=== PATIENT | male | born 1990 | race Caucasian/White ===

== ENCOUNTER 2024-08-26 10:13 | Outpatient (CLI) | payer BC, SELFPAY ==
--- NOTE | ~2024-08-26 | XR_ITS ---
Right elbow Technique: AP, oblique, and lateral views were obtained. Clinical History: Pain Findings: No acute fracture or dislocation is seen. Osseous alignment is anatomic. Joint spaces are p reserved. There is no displacement of the fat pads, and soft tissues are unremarkable. Impression: Unremarkable radiographs. Reviewed, dictated and finalized at location . [employer]ENT[employer]IVE Impression: Unremarkable radiographs.
== END 2024-08-26 10:14 | disposition home or self-care (01) ==
PROVIDERS: PCP Chiropractor Rehabilitation; Visit Provider Chiropractor Rehabilitation
DX: M25.511 Pain in right shoulder (principal); M77.01 Medial epicondylitis, right elbow
CPT/HCPCS: 73080

== ENCOUNTER 2025-03-07 16:02 | Emergency (ER) | payer BC, SELFPAY ==
--- NOTE | ~2025-03-07 | XR_ITS ---
XR shoulder RT min 2V Ordering provider: Ying Jordan PA-C History: . dog bite . Comparison: None. FINDINGS: BONES: No acute fracture or dislocation. JOINT SPACES: The acromioclavicular joint is normal. The glenohumeral joint is normal. SOFT TISSUES: Normal. IMPRESSION: No acute osseous abnormality right shoulder. Reviewed, dictated and finalized at location A.
[2025-03-07 16:04] VITALS: BP 134/88; PULSE 114; RESP 16; TEMP 36.4; O2SAT 100
--- OUTSIDE RECORDS SUMMARY | 2025-03-07 16:04 | XMS_ITS | Data Portability ---
Author Organization [facility], [facility] Address [address] [place] [address] Assessment No assessment recorded. Plan of Treatment Reminders Order Date Submit Date Provider Last Modified By Organization Details Last Modified Time Details Appointments None record ed. Lab None record ed. Referral None record ed. Procedures None record ed. Surgeries None record ed. Imaging None record ed. Medication Orders None record ed. Patient TargetsNo targets recorded. Patient Instructions Encounter Date Encounter Id Patient Instructions Last Modified By Organization Details Last Modified Time 04/19/2015 [id number] Keep up healthy lifestyle. Good luck in medical school. [email or web address] Not available 04/19/2015 09:50:27 Return prn [email or web address] Not available 04/19 09:50:27 Reason for Referral None Reported. Results Created Date Observation Date Name Description Value Unit Range Abnormal Flag Note LastModifiedBy Organization Detail LastModifiedTime Result Notes None recorded. Procedures Surgical History Date Name Laterality Status Provider Name and Address Organization Details Recorded Time Other completed [facility] 04/19/2015 09:33:11 Imaging Results None recorded. Procedure Notes None recorded. Medical Equipment None Reported. Allergies No known drug allergies Medications Not known to be on any medication Vitals Date Recorded Respiratory rate Body weight Body height Heart rate Body mass index (BMI) Systolic And Diastolic Provider Name and Address Organization Details Last Updated DateTime 5 16 /min 44123.5 9446 g 165.1 cm 56 /min 26.3 kg/m2 132/82 mm[Hg] Tracycolumba Martinez [facility] 5 09:33:11 Social History Question Answer Notes LastModified by Organizat ion Details LastModified Time Tobacco Smoking Status Never Smoker Tracycolumba rico [facility] 04/19/2015 09:33:11 Marital Status Single Informatio n not available 04/19/2015 Sex: Male Functional Status Question Answer Note LastModified by Organizat ion Details LastModified Time What is your level of alcohol consumption? Occasional Information not available 04/19/2015 Mental Status None recorded. Family History Relationship Description Onset Age of this Age Resolved Age Notes LastModified by Organization Details LastModified Time Maternal Grandfather Diabetes mellitus [email or web address] Not available 2014 09:33:11 Medical History No medical history recorded. Past Encounters Encounter ID Performer Location Encounter Start Date Encounter Closed Date Diagnosis/Indication Diagnosis SNOMED-CT Code Diagnosis ICD10 Code Diagnosis Note 909 [facility] [address] [place] [address] 02/24/2014 00:00:00 [id number] DORA YIP PA-C [facility] [address] [place] [address] 04/19/2015 09:29:31 04/19/2015 09:54:39 Adult health examination [id number] Brisa Taylor [facility] [address] [place] [address] 02/03/2020 09:55:55 02/03/2020 10:26:18 Health Concerns Section Related Observation LastModified by Organization Detai ls LastModified Time None Recorded Concern Status LastModified by Organization Details LastModified Time None Recorded Advance Directives Directive None Recorded Payers Encounter Date Sequence Insurance Name Policy Number Policy Crar Covered Member ID Carr Member ID Guarantor Name 04/19/2015 [facility] ONLY[facility] Wilder Loza [id number] Wilder Loza
--- OUTSIDE RECORDS SUMMARY | 2025-03-07 16:04 | XMS_ITS | Data Portability ---
Author Organization [facility], [facility] Address [address] [place] [address] Assessment No assessment recorded. Plan of Treatment Reminders Order Date Submit Date Provider Last Modified By Organization Details Last Modified Time Details Appointments None record ed. Lab None record ed. Referral None record ed. Procedures None record ed. Surgeries None record ed. Imaging None record ed. Medication Orders None record ed. Patient TargetsNo targets recorded. Patient InstructionsNo instructions recorded. Reason for Referral None Reported. Medical Equipment None Reported. Allergies No known drug allergies Medications Not known to be on any medication Vitals Date Recorded Body height Body mass index (BMI) Body weight Body temperature Heart rate Respiratory rate Oxygen saturation Oxygen saturation in Arterial blood by Pulse oximetry Systolic And Diastolic Provider Name and Address Organization Details Last Updated DateTime 0 165.1 cm 27.5 kg/m2 50537.7 4 g 82 [degF] 56 /min 14 /min 98 % 98 % 122/76 mm[Hg] Valerie Hightower [facility] 0 12:29:04 Social History None recorded. Functional Status None recorded. Mental Status None recorded. Family History Nothing Reported. Medical History No medical history recorded. Past Encounters Encounter ID Performer Location Encounter Start Date Encounter Closed Date Diagnosis/Indication Diagnosis SNOMED-CT Code Diagnosis ICD10 Code Diagnosis Note [id number] autoEComm erce - [facility] [address] [place] [address] 02/24/2014 00:00:00 [id number] DORA YIP PA-C [facility] [address] [place] [address] 04/19/2015 09:29:31 04/19/2015 09:54:39 [id number] Brisa Taylor [facility] [address] [place] [address] [address] [place] [address] 02/03/2020 09:55:55 02/03/2020 10:26:18 Exposure to sexually transmissible disorder 324782195 Z20.2 I discussed with patient that he could be exposed from HPV, however unable to properly test for it. He had a normal exam today and has no obvious lesions or growth. Advised him to continue with protected sex as well as monitoring if new lesions appear.FU prn Health Concerns Section Related Observation LastModified by Organization Detai ls LastModified Time None Recorded Concern Status LastModified by Organization Details LastModified Time None Recorded Advance Directives Directive None Recorded Payers Encounter Date Sequence Insurance Name Policy Number Policy Carr Covered Member ID Carr Member ID Guarantor Name 02/03/2020 1 *SELF PAY* Coty Loza Notes Date Note Type Note Provider Name and Address Organization Details Recorded Time 02/03/2020 text/html He has concerns of STD exposure, more specifically HPV exposure. He said his gf just tested positive for HPV through her pap and wanted to get checked too. He denies any new lesion or growth or penile discharge. No pain with urination at all. He does say he has possible raised bumped around the scrotum diffusely, but no problems at all. Sexually active. Same partner, uses protection. No significant medical history. Currently a MS2 Brisa Taylor [address] [facility]. [address], [place], [address], [facility] [place] [facility] 02/03/2020 10:26:16
--- OUTSIDE RECORDS SUMMARY | 2025-03-07 16:04 | XMS_ITS | Data Portability ---
Author Organization [facility] [place], Main Office Address [address] [place] [id number] Care Team Providers Care Second Floor Operator Name Role Phone ELBERT TAYLOR Primary Care Provider Assessment Encounter Date Assessment Date Assessment LastModified by Organization Details LastModified Time 11/15/2024 11/15/2024 34 yo M for - WELL ADULT VISIT - VIT D DEFICIENCY - EX-SMOKER (Quited 15 yrs ago) - FH OF DM & PROSTATE CA D/w pt about his findings and further plan of care. Will do routine labs. Pt declined for cxr. Diet and exercise explained. Cont f/u with Derm at [facility] as per schedule. Cont f/u with Ophtho as per schedule. HM: Flu - 11/15/24. Tdap - 11/15/24. Gardasil - Pt to find out. F/u in 2-3 weeks. Annual labs in 12/08. [email or web address] Not available 11/15/2024 12:44:52 12/08/2024 12/08/2024 34 yo M for - HLD, new - VIT D DEFICIENCY - EX-SMOKER (Quited 15 yrs ago) - FH OF DM & PROSTATE CA Annual labs: 11/26/24. D/w pt about his findings, recent labs and further plan of care. Advised pt to start statin; but pt declined. Risks explained. Meds as directed. Risks Vs benefits of Aspirin 81mg po 2-3 times per week explained. Pt agreed. Diet and exercise explained. Cont f/u with Derm at [facility] as per schedule. Cont f/u with Ophtho as per schedule. HM: Flu - 11/15/24. Tdap - 11/15/24. Gardasil - 12/08/24. F/u in 3 months. Lipids before next visit. Gardasil # 2 after 02/06/25. Annual labs in 12/08. [email or web address] Not available 12/08/2024 09:30:14 01/26/2025 01/26/2025 D/w pt about his findings and further plan of care. Offered to do swab/cxr; but pt declined. All questions answered for the pt. Meds as directed. OTC symptomatic Rx and good liquid intake explained in detail. Advised pt to get checked in ED if any alarming symptoms/concern s. Pt verbalized understanding it. F/u as advised. Not available 01/26/2025 10:30:12 Plan of Treatment Reminders Order Date Submit Date Provider Last Modified By Organization Details Last Modified Time Details Appointments Follow Up 15 2024 02:30P Julianna Taylor MD Not available Not available Not available Lab lipid panel, serum 2024 025 [facility] (Lab), [address] [place], [address], 03/02/2025 02:59:29 vitamin D, 25-hydrox y, total, serum [address] (Lab), [address] [place], [address], 11/25/2024 16:19:12 PSA, serum or plasma [address] (Lab), [address] [place], [address], 11/25/2024 16:19:12 CMP, serum or plasma [address] (Lab), [address] [place], [address], 11/25/2024 16:19:11 CBC w/ auto diff [address] (Lab), [address] [place], [address], 11/25/2024 16:19:11 lipid panel, blood [address] (Lab), [address] [place], [address], 11/25/2024 16:19:11 TSH, serum, reflex free T4 [address] (Lab), [address] [place], [address], 11/25/2024 16:19:12 urinalysi s complete, reflex culture [address] (Lab), [address] [place], [address], 11/25/2024 16:19:12 glycohemo globin, total, blood [address] (Lab), [address] [place], [address], 11/25/2024 16:19:12 Referral None recorded. Procedures None recorded. Surgeries None recorded. Imaging None recorded. Medication Orders azithromy alfredo 250 mg tablet [address]/Pharmacy #3259, [address] [place], [address], 01/26/2025 14:18:57 Medrol (Obinna) 4 mg tablets in a dose pack [address]/Pharmacy #3259, [address] [place], [address], 01/26/2025 14:18:57 albuterol sulfate HFA 90 mcg/actua tion aerosol inhaler [address]/Pharmacy #3259, [address] [place], [address], 01/26/2025 14:18:57 Solu-Medr ol (PF) 125 mg/2 mL solution for injection 2024 025 [place] [address] Not available 01/26/2025 14:18:57 benzonata te 200 mg capsule [address]/Pharmacy #3259, [address] [place], [address], 01/26/2025 14:18:57 ergocalci ferol (vitamin D2) 1,250 mcg (50,000 unit) capsule 2024 025 [facility]Ph[facility]acy #3259, [address] [place], [address], 12/08/2024 09:16:19 Patient TargetsNo targets recorded. Patient Instructions Encounter Date Encounter Id Patient Instructions Last Modified By Organization Details Last Modified Time 12/08/2024 [id number] high cholesterol : care instructions [email or web address] Not available 12/08/2024 09:16:17 Reason for Referral None Reported. Results Created Date Observation Date Name Description Value Unit Range Abnormal Flag Note LastModifiedBy Organization Detail LastModifiedTime 11/26/1911/27/2024 LIPID PANEL , STAND VIRGIL cholesterol, total 230 mg/dL <200 high Not Available [facility] [address] [address] [place], [address], 11/27/2024 05:49:18 11/26/1911/27/2024 LIPID PANEL , STAND VIRGIL HDL cholesterol 46 mg/dL > or = 40 normal Not Available [facility] [address] [address] [place], [address], 11/27/2024 05:49:18 11/26/1911/27/2024 LIPID PANEL , STAND VIRGIL triglyceride s 135 mg/dL <150 normal Not Available [employer] [address] [address] [place], [address], 11/27/2024 05:49:18 11/26/19 25 11/27/2024 LIPID PANEL , STAND VIRGIL LDL-choleste rol 158 mg/dL _(tatiana c) high Refer ence range : <100 Keith able range <100 mg/dL for prima ry preve ntion ; <70 mg/dL for patie nts with CHD or diabe tic patie nts with > or = 2 CHD risk facto rs. LDL-C is now calcu lated using the Harini n-Hop kins calcu evin n, which is a valid ated novel metho d provi ding shaheen r accur acy than the Fried rob equat ion in the estim ation of LDL-C . Harini n SS et al. NERY. 2013; 310(1 9): 2061- 2068 (http ://ed ucati on.[employer]. com/f aq/FA Q164) Not Available [address] [address] [place], [address], 11/27/2024 05:49:18 11/26/19 25 11/27/2024 LIPID PANEL , STAND VIRGIL chol/HDLC ratio 5.0 (calc ) <5.0 high Not Available [address] [address] [place], [address], 11/27/2024 05:49:18 11/26/1911/27/2024 LIPID PANEL , STAND VIRGIL non HDL cholesterol 184 mg/dL _(tatiana c) <130 high For patie nts with diabe jessy plus 1 major ASCVD risk facto r, treat ing to a non-H DL-C goal of <100 mg/dL (LDL- C of <70 mg/dL ) is consi dered a thera peuti c optio n. Not Available [address] [address] [place], [address], 11/27/2024 05:49:18 11/26/1911/27/2024 COMPR EHENS EARLINE METAB OLIC PANEL glucose 88 mg/dL 65-99 normal Fasti ng refer ence inter elysia Not Available [facility] [address] [address] [place], [address], 11/27/2024 05:49:19 11/26/1911/27/2024 COMPR EHENS EARLINE METAB OLIC PANEL urea nitrogen (BUN) 18 mg/dL 7-25 normal Not Available [address] [address] [place], [address], 11/27/2024 05:49:19 11/26/1911/27/2024 COMPR EHENS EARLINE METAB OLIC PANEL creatinine 0.81 mg/dL 0.60-1 .26 normal Not Available [address], [address], 11/27/2024 05:49:19 11/26/1911/27/2024 COMPR EHENS EARLINE METAB OLIC PANEL eGFR 119 mL/mi n/1.7 3m2 > or = 60 normal Not Available [address] [address] [place], [address], 11/27/2024 05:49:19 11/26/1911/27/2024 COMPR EHENS EARLINE METAB OLIC PANEL BUN/creatini ne ratio SEE NOTE: (calc ) 6-22 Not Repor chasidy: BUN and Creat inine are withi n refer ence range . Not Available [address], [address], 11/27/2024 05:49:19 11/26/1911/27/2024 COMPR EHENS EARLINE METAB OLIC PANEL sodium 136 mmol/ L 135-14 6 normal Not Available [facility] [address] [address] [place], [address], 11/27/2024 05:49:19 11/26/1911/27/2024 COMPR EHENS EARLINE METAB OLIC PANEL potassium 4.5 mmol/ L 3.5-5. 3 normal Not Available [facility] [address] [address] [place], [address], 11/27/2024 05:49:19 11/26/19 25 11/27/2024 COMPR EHENS EARLINE METAB OLIC PANEL chloride 99 mmol/ L 98-110 normal Not Available [address], [address], 11/27/2024 05:49:19 11/26/19 25 11/27/2024 COMPR EHENS EARLINE METAB OLIC PANEL carbon dioxide 30 mmol/ L 20-32 normal Not Available [address], [address], 11/27/2024 05:49:19 11/26/1911/27/2024 COMPR EHENS EARLINE METAB OLIC PANEL calcium 9.4 mg/dL 8.6-10 .3 normal Not Available [address], [address], 11/27/2024 05:49:19 11/26/19 25 11/27/2024 COMPR EHENS EARLINE METAB OLIC PANEL protein, total 7.1 g/dL 6.1-8. 1 normal Not Available [address], [address], 11/27/2024 05:49:19 11/26/19 25 11/27/2024 COMPR EHENS EARLINE METAB OLIC PANEL albumin 4.8 g/dL 3.6-5. 1 normal Not Available [address], [address], 11/27/2024 05:49:19 11/26/1911/27/2024 COMPR EHENS EARLINE METAB OLIC PANEL globulin 2.3 g/dL_ (calc ) 1.9-3. 7 normal Not Available [address], [address], 11/27/2024 05:49:19 11/26/19 25 11/27/2024 COMPR EHENS EARLINE METAB OLIC PANEL albumin/glob ulin ratio 2.1 (calc ) 1.0-2. 5 normal Not Available [address], [address], 11/27/2024 05:49:19 11/26/1911/27/2024 COMPR EHENS EARLINE METAB OLIC PANEL bilirubin, total 0.8 mg/dL 0.2-1. 2 normal Not Available [address], [address], 11/27/2024 05:49:19 11/26/1911/27/2024 COMPR EHENS EARLINE METAB OLIC PANEL alkaline phosphatase 55 U/L 36-130 normal Not Available [facility] [employer] [address], [address], 11/27/2024 05:49:19 11/26/1911/27/2024 COMPR EHENS EARLINE METAB OLIC PANEL AST 18 U/L 10-40 normal Not Available [address], [address], 11/27/2024 05:49:19 11/26/1911/27/2024 COMPR EHENS EARLINE METAB OLIC PANEL ALT 25 U/L 9-46 normal Not Available [address], [address], 11/27/2024 05:49:19 11/26/1911/27/2024 CBC (INCL UDES DIFF/ PLT) white blood cell count 5.9 thous and/u L 3.8-10 .8 normal Not Available [address], [address], 11/27/2024 05:49:19 11/26/1911/27/2024 CBC (INCL UDES DIFF/ PLT) red blood cell count 5.48 monica on/uL 4.20-5 .80 normal Not Available [address], [address], 11/27/2024 05:49:19 11/26/1911/27/2024 CBC (INCL UDES DIFF/ PLT) hemoglobin 16.4 g/dL 13.2-1 7.1 normal Not Available [address], [address], 11/27/2024 05:49:19 11/26/1911/27/2024 CBC (INCL UDES DIFF/ PLT) hematocrit 48.3 % 38.5-5 0.0 normal Not Available [facility] [address], [address], 11/27/2024 05:49:19 11/26/1911/27/2024 CBC (INCL UDES DIFF/ PLT) MCV 88.1 fL 80.0-1 00.0 normal Not Available [address], [address], 11/27/2024 05:49:19 11/26/1911/27/2024 CBC (INCL UDES DIFF/ PLT) MCH 29.9 pg 27.0-3 3.0 normal Not Available [address], [address], 11/27/2024 05:49:19 11/26/1911/27/2024 CBC (INCL UDES DIFF/ PLT) MCHC 34.0 g/dL 32.0-3 6.0 normal For adult s, a sligh t decre ase in the calcu lated MCHC value (in the range of 30 to 32 g/dL) is most likel y not clini sivan jeani mark t; katelyn er, it shoul d be inter prete d with cauti [place] [facility] [place] with other red cell roger eters and the patie nt's clini tatiana condi tion. Not Available [address], [address], 11/27/2024 05:49:19 11/26/1911/27/2024 CBC (INCL UDES DIFF/ PLT) RDW 12.4 % 11.0-1 5.0 normal Not Available [address], [address], 11/27/2024 05:49:19 11/26/19 25 11/27/2024 CBC (INCL UDES DIFF/ PLT) platelet count 219 thous and/u L 140-40 0 normal Not Available [address], [address], 11/27/2024 05:49:19 11/26/1911/27/2024 CBC (INCL UDES DIFF/ PLT) MPV 10.0 fL 7.5-12 .5 normal Not Available [address], [address], 11/27/2024 05:49:19 11/26/1911/27/2024 CBC (INCL UDES DIFF/ PLT) absolute neutrophils 2720 cells /uL 1500-7 800 normal Not Available [address], [address], 11/27/2024 05:49:19 11/26/1911/27/2024 CBC (INCL UDES DIFF/ PLT) absolute lymphocytes 2390 cells /uL 850-39 00 normal Not Available [address], [address], 11/27/2024 05:49:19 11/26/1911/27/2024 CBC (INCL UDES DIFF/ PLT) absolute monocytes 496 cells /uL 200-95 0 normal Not Available [address], [address], 11/27/2024 05:49:19 11/26/19 25 11/27/2024 CBC (INCL UDES DIFF/ PLT) absolute eosinophils 248 cells /uL 15-500 normal Not Available [facility] [address], [address], 11/27/2024 05:49:19 11/26/1911/27/2024 CBC (INCL UDES DIFF/ PLT) absolute basophils 47 cells /uL 0-200 normal Not Available [address], [address], 11/27/2024 05:49:19 11/26/1911/27/2024 CBC (INCL UDES DIFF/ PLT) neutrophils 46.1 % normal Not Available [facility] [address], [address], 11/27/2024 05:49:19 11/26/1911/27/2024 CBC (INCL UDES DIFF/ PLT) lymphocytes 40.5 % normal Not Available [address], [address], 11/27/2024 05:49:19 11/26/1911/27/2024 CBC (INCL UDES DIFF/ PLT) monocytes 8.4 % normal Not Available [address], [address], 11/27/2024 05:49:19 11/26/1911/27/2024 CBC (INCL UDES DIFF/ PLT) eosinophils 4.2 % normal Not Available [address], [address], 11/27/2024 05:49:19 11/26/1911/27/2024 CBC (INCL UDES DIFF/ PLT) basophils 0.8 % normal Not Available [address], [address], 11/27/2024 05:49:19 11/26/1911/27/2024 URINA LYSIS , COMPL ETE W/REF TERRI TO CULTU RE color YELLOW yellow normal Not Available [address], [address], 11/27/2024 05:49:20 11/26/19 25 11/27/2024 URINA LYSIS , COMPL ETE W/REF TERRI TO CULTU RE appearance CLEAR clear normal Not Available [address], [address], 11/27/2024 05:49:20 11/26/19 25 11/27/2024 URINA LYSIS , COMPL ETE W/REF TERRI TO CULTU RE specific gravity 1.016 1.001- 1.035 normal Not Available [address], [address], 11/27/2024 05:49:20 11/26/19 25 11/27/2024 URINA LYSIS , COMPL ETE W/REF TERRI TO CULTU RE pH 6.5 5.0-8. 0 normal Not Available [address], [address], 11/27/2024 05:49:20 11/26/19 25 11/27/2024 URINA LYSIS , COMPL ETE W/REF TERRI TO CULTU RE glucose NEGATI VE negati ve normal Not Available [address], [address], 11/27/2024 05:49:20 11/26/19 25 11/27/2024 URINA LYSIS , COMPL ETE W/REF TERRI TO CULTU RE bilirubin NEGATI VE negati ve normal Not Available [address], [address], 11/27/2024 05:49:20 11/26/19 25 11/27/2024 URINA LYSIS , COMPL ETE W/REF TERRI TO CULTU RE ketones NEGATI VE negati ve normal Not Available [address], [address], 11/27/2024 05:49:20 11/26/19 25 11/27/2024 URINA LYSIS , COMPL ETE W/REF TERRI TO CULTU RE occult blood NEGATI VE negati ve normal Not Available [address], [address], 11/27/2024 05:49:20 11/26/19 25 11/27/2024 URINA LYSIS , COMPL ETE W/REF TERRI TO CULTU RE protein NEGATI VE negati ve normal Not Available [address], [address], 11/27/2024 05:49:20 11/26/1911/27/2024 URINA LYSIS , COMPL ETE W/REF TERRI TO CULTU RE nitrite NEGATI VE negati ve normal Not Available [address], [address], 11/27/2024 05:49:20 11/26/19 25 11/27/2024 URINA LYSIS , COMPL ETE W/REF TERRI TO CULTU RE leukocyte esterase NEGATI VE negati ve normal Not Available [address], [address], 11/27/2024 05:49:20 11/26/19 25 11/27/2024 URINA LYSIS , COMPL ETE W/REF TERRI TO CULTU RE WBC NONE SEEN /hpf < or = 5 normal Not Available [address], [address], 11/27/2024 05:49:20 11/26/19 25 11/27/2024 URINA LYSIS , COMPL ETE W/REF TERRI TO CULTU RE RBC NONE SEEN /hpf < or = 2 normal Not Available [address], [address], 11/27/2024 05:49:20 11/26/19 25 11/27/2024 URINA LYSIS , COMPL ETE W/REF TERRI TO CULTU RE squamous epithelial cells NONE SEEN /hpf < or = 5 normal Not Available [facility] [address] [address] [address], [place], [address], 11/27/2024 05:49:20 11/26/19 25 11/27/2024 URINA LYSIS , COMPL ETE W/REF TERRI TO CULTU RE bacteria NONE SEEN /hpf none seen normal Not Available [facility] [address], [address], 11/27/2024 05:49:20 11/26/19 25 11/27/2024 URINA LYSIS , COMPL ETE W/REF TERRI TO CULTU RE hyaline cast NONE SEEN /lpf none seen normal Not Available [facility] [address], [address], 11/27/2024 05:49:20 11/26/19 25 11/27/2024 URINA LYSIS , COMPL ETE W/REF TERRI TO CULTU RE note This urine was preet zed for the prese nce of WBC, RBC, bacte myah, casts , and other forme d eleme nts. Only those eleme nts seen were repor chasidy. Not Available [address], [address], 11/27/2024 05:49:20 11/26/19 25 11/27/2024 REFLE XIVE URINE CULTU RE reflexive urine culture NO CULTU RE INDIC ATED Not Available [address], [address], 11/27/2024 05:49:20 11/26/19 25 11/27/2024 PSA, TOTAL PSA, total 0.22 NG/mL < or = 4.00 normal The total PSA value from this assay syste m is stand ardiz ed again st the WHO stand virgil. The test resul t will be appro ximat steffi 20% lower when alex red to the equim olar- stand ardiz ed total PSA (Dickinson man Coult er). Alex rison of seria l PSA resul ts shoul d be inter prete d with this fact in mind. This test was perfo rmed using the Sieme ns chemi lumin escen t metho d. Value s obtai laury from diffe rent assay metho ds canno t be used inter golden eably . PSA level s, regar dless of value , shoul d not be inter prete d as absol brendan evide nce of the prese nce or absen ce of disea se. Not Available [facility] [address] [address] [place], [address], 11/27/2024 05:49:21 11/26/19 25 11/27/2024 TSH TSH 1.59 mIU/L 0.40-4 .50 normal Not Available [facility] [address] [address] [place], [address], 11/27/2024 05:49:21 11/26/19 25 11/27/2024 VITAM IN D,25- OH,TO QUINTIN,I A vitamin D,25-oh,tota l,ia 17 NG/mL 30-100 low Vitam in D Statu s 25-OH Vitam in D: Defic iency : <20 ng/mL Insuf ficie ncy: 20 - 29 ng/mL Optim al: > or = 30 ng/mL For 25-OH Vitam in D testi ng on patie nts on D2-matos pplem entat ion and patie nts for whom quant itati on of D2 and D3 fract ions is requi red, the [facility] Assur eD(TM ) 25-OH VIT D, (D2,D 3), LC/MS /MS is recom giulia d: order code 65133 (mandeep ents >2yrs ). See Note 1 Note 1 For addit ional infor astrid mason e refer to http: //brittanie Herbert stDia gnost ics.c om/fa q/FAQ 199 (This link is being provi ded for infor nikolay nickerson/ ibrahima soto purpo ses only. ) Not Available [facility] [address] [address] [place], [address], 11/27/2024 05:49:21 11/26/1911/27/2024 HEMOG LOBIN A1C hemoglobin A1C 5.3 %_of_ total _HGB <5.7 normal For the purpo se of tanya talley for the prese nce of diabe jessy: <5.7% Consi stent with the absen ce of diabe jessy 5.7-6 .4% Consi stent with incre ased risk for diabe jessy (pred iabet es) > or =6.5% Consi stent with diabe jessy This assay resul t is consi stent with a decre ased risk of diabe jessy. Curre ntly, no conse nsus exist s kathia castillo use of hemog lobin A1c for diagn osis of diabe jessy in child anaya. Accor ding to Ameri can Diabe jessy Assoc iatio n (ADA) guide lines , hemog lobin A1c <7.0% repre sents optim al contr ol in non-p regna nt diabe tic patie nts. Diffe rent metri cs may apply to speci fic patie nt popul ation s. Stand ards of Medic al Care in Diabe jessy(A DA). Not Available [facility] [address] [address] [place], [address], 11/27/2024 05:49:22 03/01/20 25 03/02/2025 LIPID PANEL , STAND VIRGIL cholesterol, total 208 mg/dL <200 high Not Available [facility] [address] [address] [place], [address], 03/02/2025 02:59:29 03/01/20 25 03/02/2025 LIPID PANEL , STAND VIRGIL HDL cholesterol 49 mg/dL > or = 40 normal Not Available [facility] [address] [address] [place], [address], 03/02/2025 02:59:29 03/01/20 25 03/02/2025 LIPID PANEL , STAND VIRGIL triglyceride s 97 mg/dL <150 normal Not Available [facility] [address] [address] [place], [address], 03/02/2025 02:59:29 03/01/20 25 03/02/2025 LIPID PANEL , STAND VIRGIL LDL-choleste rol 139 mg/dL _(tatiana c) high Refer ence range : <100 Keith able range <100 mg/dL for prima ry preve ntion ; <70 mg/dL for patie nts with CHD or diabe tic patie nts with > or = 2 CHD risk facto rs. LDL-C is now calcu lated using the Harini n-Hop kins calcu latio n, which is a valid ated novel metho d provi ding shaheen r accur acy than the Fried rob equat ion in the estim ation of LDL-C . Harini melara SS et al. NERY. 2013; 310(1 9): 2061- 2068 (http ://ed ucati on.[employer]. com/f aq/FA Q164) Not Available [facility] [address] [place], [address], 03/02/2025 02:59:29 03/01/20 25 03/02/2025 LIPID PANEL , STAND VIRGIL chol/HDLC ratio 4.2 (calc ) <5.0 normal Not Available [facility] [address] [address] , [place], [address], 03/02/2025 02:59:29 03/01/20 25 03/02/2025 LIPID PANEL , STAND VIRGIL non HDL cholesterol 159 mg/dL _(tatiana c) <130 high For patie nts with diabe jessy plus 1 major ASCVD risk facto r, treat ing to a non-H DL-C goal of <100 mg/dL (LDL- C of <70 mg/dL ) is juanpablo robertsono n. Not Available [facility] [address] [address] , [place], [address], 03/02/2025 02:59:29 12/03/19 25 12/03/2024 other (proc ) No observ ation record ed. Not Available 2024 09:15:08 Result Notes None recorded. Problems Name Problem SNOMED Code Status Onset Date Resolution Date Notes Provider Name and Address Organization Details Recorded Time Vitamin D deficiency 86363814 Active 2024 Elbert Taylor MD [address] [facility], [address], [address], [employer] 5 12:28:36 Ex-cigarette smoker 604098637 Active 2024 Elbert Taylor MD [address], [address], [employer] 5 12:30:30 Family history of diabetes mellitus 403091716 Active 2024 Elbert Taylor MD [address], [address], [employer] 5 12:37:05 Family history of malignant neoplasm of prostate 190003513 Active 2024 Elbert Taylor MD [address], [address], [employer] 5 12:37:06 Hyperlipidemia 36661539 Active 2024 Elbert Taylor MD [address], [address], [employer] 5 09:03:49 Cough 56279165 Active 2024 Miriam rico [employer] 14:18:57 Bronchitis 95581558 Active 2024 Miriam rico, [facility] [employer] 5 14:18:57 Expiratory wheezing 6834162 Active 2024 Miriam rico [facility] [employer] 14:18:57 Fever with chills 017043777 Active 2024 Miriam rico, [facility] [employer] 14:18:57 Problem Notes None recorded. Procedures Surgical History Date Name Laterality Status Provider Name and Address Organization Details Recorded Time 10/13/19 16 Appendectomy completed Alva Handy RN [facility] [facility] 11/15/2024 12:18:24 10/13/19 11 extraction of wisdom tooth completed Alva Handy RN [facility] [employer] [facility] 11/15/2024 12:18:46 10/13/18 90 lumbar puncture completed Alva Handy RN [facility] [employer] [facility] 11/15/2024 12:19:27 Imaging Results None recorded. Procedure Notes None recorded. Medical Equipment None Reported. Allergies No known drug allergies Medications Name Sig Start Date Stop Date Status Note LastModified by Organization Details LastModified Time doxycycline hyclate 100 mg capsule TAKE 1 CAPSULE BY MOUTH TWICE DAILY FOR 5 DAYS 01/26 completed Not Available Not Available Not Available azithromyci n 250 mg tablet TAKE 2 TABLETS (500 MG) BY ORAL ROUTE ONCE DAILY FOR 1 DAY THEN 1 TABLET (250 MG) BY ORAL ROUTE ONCE DAILY FOR 4 DAYS active Not Available Not Available No t Available benzonatate 200 mg capsule TAKE 1 CAPSULE BY MOUTH THREE TIMES A DAY NEEDED FOR 7 DAYS active Not Available Not Available No t Available ergocalcife rol (vitamin D2) 1,250 mcg (50,000 unit) capsule Take 1 capsule every week by oral route as directed for 90 days. 2024 active Not Available Not Available Not Avai lable methylpredn isolone 4 mg tablets in a dose pack TAKE 6 TABLETS ON DAY 1 DIRECTED ON PACKAGE AND DECREASE BY 1 TABLET EACH DAY FOR A TOTAL OF 6 DAYS active Not Available Not Available No t Available albuterol sulfate HFA 90 mcg/actuati on aerosol inhaler INHALE 2 PUFFS BY MOUTH EVERY 6 HOURS NEEDED FOR 10 DAYS active Not Available Not Available No t Available Solu-Medrol (PF) 125 mg/2 mL solution for injection Take 125 mg by injection route for 1 day. 2024 active pt martine well Not Available Not Available Not Available Vitals Date Recorded Heart rate Systolic And Diastolic Provider Name and Address Organization Details Last Updated DateTime 11/15/2024 96 /min 120/82 mm[Hg] Elbert Taylor MD [address] [facility], [facility] [address], [place], [address], [place] - [facility] 11/15/2024 12:36:04 Date Recorded Body height Body mass index (BMI) Body weight Body temperature Oxygen saturation Oxygen saturation in Arterial blood by Pulse oximetry Provider Name and Address Organization Details Last Updated DateTime 165.1 cm 31.1 kg/m2 57183.7 7 g 97 [degF] 97 % 97 % Alva Handy RN [facility] [employer] 12:05:09 Date Recorded Body height Body mass index (BMI) Body weight Body temperature Oxygen saturation Oxygen saturation in Arterial blood by Pulse oximetry Heart rate Systolic And Diastolic Provider Name and Address Organization Details Last Updated DateTime 5 165.1 cm 31.8 kg/m2 52186.4 9 g 98.1 [degF] 96 % 96 % 381 /min 124/70 mm[Hg] Alva Handy RN [facility] [employer] 09:13:25 Date Recorded Body height Body mass index (BMI) Body weight Body temperature Oxygen saturation Oxygen saturation in Arterial blood by Pulse oximetry Heart rate Systolic And Diastolic Provider Name and Address Organization Details Last Updated DateTime 5 165.1 cm 31.3 kg/m2 14918.7 2 g 96.8 [degF] 95 % 95 % 104 /min 124/70 mm[Hg] Miriam Artis [facility] [employer] 14:18:56 Social History Question Answer Notes LastModified by Organizat ion Details LastModified Time Tobacco Smoking Status Former Smoker Alva Handy RN [facility], [facility] [employer] [facility] 11/15/2024 12:09:14 What Is Your Level Of Caffeine Consumption? None [email or web address] Information not available 11/15/2024 When Did You Quit Smoking? 11-15yearss incelastcig arette Information not available 11/15/2024 What Is Your Current Pack Years? 10packyears [email or web address] Information not available 11/15/2024 At What Age Did You Start Smoking Tobacco? 18 [email or web address] Information not available 11/15/2024 How Much Tobacco Do You Smoke? No Not Even A Pack Per Month [email or web address] Information not available 11/15/2024 How Many Years Have You Smoked Tobacco? 2 Information not available 11/15/2024 Sex: Unknown Functional Status Question Answer Note LastModified by Organizat ion Details LastModified Time Do you use any illicit or recreational drugs? No [email or web address] Information not available 11/15/2024 Do you or have you ever used any other forms of tobacco or nicotine? No Information not available 11/15/2024 What is your level of alcohol consumption? None [email or web address] Information not available 11/15/2024 Mental Status None recorded. Family History Relationship Description Onset Age of this Age Resolved Age Notes LastModified by Organization Details LastModified Time Sister Malignant neoplasm of skin 33 [email or web address] Not available 11/15 12:13:38 Paternal Grandmother Malignant neoplasm of ovary [email or web address] Not available 11/15 12:14:27 Paternal Grandfather Malignant neoplasm of prostate 84 84 [email or web address] Not available 11/15 12:15:18 Maternal Grandfather Heart disease [email or web address] Not available 11/15 12:15:55 Maternal Grandfather Type 2 diabetes mellitus [email or web address] Not available 11/15 12:16:23 Maternal Grandfather Hydrocephalu s [email or web address] Not available 11/15 12:17:58 Maternal Grandmother Multiple sclerosis starte d about 34 years ago Not available 11/15/2024 12:17:17 Medical History No medical history recorded. Immunizations Vaccine Type Date Status Note Provider Nam e and Address Organization Details Recorded Time Tdap 11/15/2024 completed JEFF Feliciano, [facility] 11/15/2024 12:59:35 Influenza, split virus, trivalent, PF 11/15/2024 JEFF Carney, [facility] 11/15/2024 13:00:51 HPV9 12/08/2024 JEFF Carney, [facility] 12/08/2024 09:31:18 Past Encounters Encounter ID Performer Location Encounter Start Date Encounter Closed Date Diagnosis/Indication Diagnosis SNOMED-CT Code Diagnosis ICD10 Code Diagnosis Note [id number] Elbert Taylor MD [address] [address] 11/15/2024 11:56:09 11/15/2024 12:46:00 Adult health examination 955684499 Z00.00 Active immunization 3387 9002 Z23 Family his tory of diabetes mellitus 535099515 Z83.3 Administra tion of influenza vaccine 86508564 Z23 Family his tory of malignant neoplasm of prostate 757097099 Z80.42 Vitamin D deficiency 347 36166 E55.9 Ex-cigarette smoker 2810 38031 Z87.485 [id number] Elbert Taylor MD [address] [address] 12/08/2024 08:53:10 12/08/2024 09:28:56 Family history of diabetes mellitus 766085365 Z83.3 Family his tory of malignant neoplasm of prostate 004917436 Z80.42 Vitamin D deficiency 347 48871 E55.9 Ex-cigarette smoker 2810 01790 Z87.891 Hyperlipidemia 70659673 E78.5 Active or passive immunization 535519621 Z23 [id number] Elbert Taylor MD [address] [address] 01/26/2025 10:00:51 01/26/2025 10:36:36 Cough 77514231 R05.9 Bronchitis 99378798 J40 Expiratory wheezing 9763 007 R06.2 Fever with chills 945456 006 R50.9 Health Concerns Section Related Observation LastModified by Organization Detai ls LastModified Time None Recorded Concern Status LastModified by Organization Details LastModified Time None Recorded Advance Directives Directive None Recorded Payers Encounter Date Sequence Insurance Name Policy Number Policy Carr Covered Member ID Carr Member ID Guarantor Name 11/15/2024 1 [place] [id number] Melania Edmond [id number] Wilder Polen 12/08/2024 1 [place] [id number] Melania Edmond [id number] Wilder Polen 01/26/2025 1 [place] [id number] Pedro Loza [id number] Wilder Loza Notes Date Note Type Note Provider Name and Address Organization Details Recorded Time 11/15/2024 text/html New pt visit:34 yo M is here to establish his care. Pt was seeing PCP [facility] in [facility] past, not seen anyone for last 7-8 yrs.Doing overall well. Denies any concern. Wants to get routine labs done. 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 Elbert Taylor MD [address], [employer], [place], [address], [employer] 11/15/2024 12:46:18 12/08/2024 text/html Pt is here for f /u on his annual labs. Doing overall well. Denies any concern. Pt wants to get Gardasil vaccine. 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 Pt is f/u with Derm for his moles and will be getting surgery for his Lt upper back mole excision. Elbert Taylor MD [address] [employer], [place], [address], [employer] 12/08/2024 09:30:56 01/26/2025 text/html ACV: C/o cough, congestion, yellow-greenish sputum, fever, chills, fatigue for last 3 days. Pt denies any known sick contact. No n/v/d. Pt has been doing otc meds, but still not getting better. Elbert Taylor MD [address] [employer], [place], [address], [employer] 01/26/2025 10:31:01
--- NOTE | 2025-03-07 16:10 | ED_ITS ---
HPI - Animal Bite General Chief Complaint: Animal Bite <Ying Jordan PA-C - Last Filed: 03/07/25 17:47> Stated Complaint: Bite by dog <Ying Jordan PA-C - Last Filed: 03/07/25 17:47> Time Seen by Provider: 03/07/25 19:14 <Ying Jordan PA-C - Last Filed: 03/07/25 17:47> Focused HPI: 34-year-old male presents emergency department for dog bite to his right shoulder that occurred prior to arrival. Patient states he was at a dog park when his dog and another dog got into a fight. He attempted to break up the fight, the other dog bit the patient shoulder. Patient is reporting with a laceration to the right anterior shoulder. No difficulty with range of motion. Last Tdap unknown. He is uncertain of the dog's vaccination status, however he is having his text the intermodal owner operator truck driver's of the dog to figure out the dog's rabies vaccine status. GENERAL: Well-appearing, well-nourished, and in no acute distress. HEAD: Normocephalic, atraumatic. CHEST: Clear to auscultation. ?No respiratory distress. SKIN: Approximately 5 cm laceration to the right anterior shoulder extending through the subcutaneous tissue and up to the fascia. No muscle involvement. No other deep structures or foreign bodis visualized. Full ROM of shoulder. Radial pulse 2+. Radial, median and ulnar nerves are intact. Sensation intact. Mild oozing at laceration site HEART: Regular rate and rhythm.? NEURO: ?Alert and oriented x3. Patient screened in triage and initial orders placed.? ?Additional care and disposition to be based upon?diagnostic testing and treatment. <Ying Jordan PA-C - Last Filed: 03/07/25 17:47> History of Present Illness HPI narrative: Agree with the above with the following additions/corrections: This does not appear to be an unprovoked bite as there were circumstances that explain the dog's behavior. Have subsequently been told that dog is vaccinated. Patient is already planning on discussing root dilatation strategies for her shoulder or his physical therapist. Patient's pain is a 1 or 2/10 in severity. His primary care physician is Dr. Taylor in [place]. <Miya Mae MD - Last Filed: 03/09/25 18:20> Related Data Allergies/Adverse Reactions: Allergies Allergy/AdvReac Type Severity Reaction Status Date / Time No Known Allergies Allergy Verified 03/07/25 16:03 <Ying Jordan PA-C - Last Filed: 03/07/25 17:47> PMFSH Social History Social History: Social History (Updated 03/09/25 @ 18:18 by Miya Mae MD) Social History: Living arrangements: with family Additional living arrangements comments: and 2 dogs Occupation/Education: occupation Additional occupation/education comments: chiropractor <Ying Jordan PA-C - Last Filed: 03/07/25 17:47> Exam Narrative: GENERAL: Well-appearing, well-nourished, and in no acute distress. HEAD: Normocephalic, atraumatic. EYES: Non injected, non icteric ENT: Nares clear, no rhinorrhea or epistaxis. Gross auditory acuity intact. NECK: Supple. No meningismus. CHEST: Speaking in full sentences. No respiratory distress. HEART: Tachycardic rate and rhythm. . ABDOMEN: Soft, nondistended. No rigidity or guarding. Not peritoneal EXTREMITIES: Normal range of motion or RUE. No R upper extremity edema. SKIN: Warm, dry. 5 cm laceration across right shoulder/back/upper chest. Subcutaneous fat exposed. Fascia is seen but appears to be intact. Wound is gaping. NEURO: No focal deficits. Alert and oriented. Answering questions. Following commands. Normal speech without aphasia or dysarthria. Sensation intact throughout arm. PSYCH: Normal mood and affect. <Miya Mae MD - Last Filed: 03/09/25 18:20> Course Vital Signs Vital signs: Vital Signs Temperature 97.6 F 03/07/25 16:04 Pulse Rate 114 H 03/07/25 16:04 Respiratory Rate 16 03/07/25 16:04 Blood Pressure 134/88 03/07/25 16:04 Pulse Oximetry 100 03/07/25 16:04 Oxygen Delivery Room Air 03/07/25 16:04 Temperature 97.6 F 03/07/25 16:04 Pulse Rate 78 03/07/25 21:32 Respiratory Rate 16 03/07/25 21:32 Blood Pressure 128/84 03/07/25 21:32 Pulse Oximetry 100 03/07/25 21:32 Oxygen Delivery Room Air 03/07/25 16:04 <Ying Jordan PA-C - Last Filed: 03/07/25 17:47> Vital Signs Temperature 97.6 F 03/07/25 16:04 Pulse Rate 114 H 03/07/25 16:04 Respiratory Rate 16 03/07/25 16:04 Blood Pressure 134/88 03/07/25 16:04 Pulse Oximetry 100 03/07/25 16:04 Oxygen Delivery Room Air 03/07/25 16:04 Temperature 97.6 F 03/07/25 16:04 Pulse Rate 78 03/07/25 21:32 Respiratory Rate 16 03/07/25 21:32 Blood Pressure 128/84 03/07/25 21:32 Pulse Oximetry 100 03/07/25 21:32 Oxygen Delivery Room Air 03/07/25 16:04 <Miya Mae MD - Last Filed: 03/09/25 18:20> Procedures Laceration Laceration 1: Date: 03/07/25 <Miya Mae MD - Last Filed: 03/09/25 18:20> Time: 20:45 <Miya Mae MD - Last Filed: 03/09/25 18:20> Site: upper extremity <Miya Mae MD - Last Filed: 03/09/25 18:20> Side (If applicable): right <Miya Mae MD - Last Filed: 03/09/25 18:20> Size (cm): 5 <Miya Mae MD - Last Filed: 03/09/25 18:20> Description: linear <Miya Mae MD - Last Filed: 03/09/25 18:20> Pre-repair: wound explored, irrigated and irrigated extensively <Miya Mae MD - Last Filed: 03/09/25 18:20> ====== Skin Level ======: Skin layer closed with: other (Ethilon) <Miya Mae MD - Last Filed: 03/09/25 18:20> Size (cm): 4-0 <Miya Mae MD - Last Filed: 03/09/25 18:20> Number of sutures: 4 <Miya Mae MD - Last Filed: 03/09/25 18:20> Technique: simple, interrupted <Miya Mae MD - Last Filed: 03/09/25 18:20> ====== Subcutaneous Layer ======: ====== Muscle Layer ======: ====== Tendon Layer ======: Dressing: depth - to fascia Loose closure / loose approximation <Miya Mae MD - Last Filed: 03/09/25 18:20> MDM - Animal Bite MDM Narrative Medical decision making narrative: Patient presents after a dog bite. His dog and this dog were fighting, does not appear to be an unprovoked/suspicious encounter. This dog has been vaccinated they find out later. In the emergency department he is afebrile with vital signs notable for tachycardia. Patient is updated for tetanus. He is given 1st dose of antibiotic. Laceration repair as above. Discharged with prescriptions for OTC analgesic medications and antibiotic. <Miya Mae MD - Last Filed: 03/09/25 18:20> Differential Diagnosis Differential diagnosis: Likely bite by animal and dog bite <Miya Mae MD - Last Filed: 03/09/25 18:20> Imaging Data Radiologist's impression: IMPRESSION: No acute osseous abnormality right shoulder. <Miya Mae MD - Last Filed: 03/09/25 18:20> Discharge Plan Discharge Clinical Impression: Dog bite, Laceration of right shoulder <Ying Jordan PA-C - Last Filed: 03/07/25 17:47> Patient Disposition: Home <Ying Jordan PA-C - Last Filed: 03/07/25 17:47> Condition: Stable <Ying Jordan PA-C - Last Filed: 03/07/25 17:47> Instructions: Antibiotic Form, Animal Bite (ED), Care For Your Stitches (DC), Laceration (DC) <MEGHAN June Last Filed: 03/07/25 17:47> Additional Instructions: So that your wound is not gaping, loose approximation with 4 sutures was performed. These stitches will need to be removed in 7-10 days. This can be done your by your primary care physician, at an urgent care, or by returning to the emergency department. Take the entire course of antibiotics. Keep involved extremity elevated. Avoid soaking the wound and avoid wrapping bandages too tightly. Keep the area clean warm and dry. Warm soapy water is fine but make sure skin is fully dry before applying a new bandage/dressing. Your tetanus was updated today. Return to the emergency department if any new, worsening, or unmanaged symptoms and signs of infection such as spreading/streaking redness, draining pus, which intractable pain, fever greater than 100.4? F, etc. <MEGHAN June Last Filed: 03/07/25 17:47> Patient Language: French <MEGHAN June Last Filed: 03/07/25 17:47> Prescriptions: New acetaminophen 500 mg capsule 1,000 mg PO Q6H PRN (Reason: pain) Qty: 30 0RF ibuprofen 600 mg tablet 600 mg PO TID PRN (Reason: pain) Qty: 30 0RF amoxicillin-pot clavulanate 875-125 mg tablet 1 tablet PO Q12H 7 Days Qty: 13 0RF Rx Instructions: received first dose in ED 03/07 PM <MEGHAN June Last Filed: 03/07/25 17:47> Follow-up/Referrals: Brandon,MD Elbert [Primary Care Provider] - <MEGHAN June Last Filed: 03/07/25 17:47> Stand Alone Forms: Work/School Release IP <MEGHAN June Last Filed: 03/07/25 17:47> Time of Disposition: 21:06 <MEGHAN June Last Filed: 03/07/25 17:47> 21:06 <Miya Mae MD - Last Filed: 03/09/25 18:20>
[2025-03-07] MEDS: AMOXICILLIN/CLAVULANATE K 875-125 MG TAB 1 TABLET PO (17:43)
[2025-03-07] MEDS: TETANUS,DIPHTHERIA,AC PERTUSSIS ADULT (0.5 ML) BOOSTRIX IM (17:43)
[2025-03-07] MEDS: HYDROcodone/acetaminophen (*CRX) 5-325 MG TABLET 1 TAB PO (20:24)
[2025-03-07] MEDS: LIDOCAINE 1% LOCAL INJ 10 ML VIAL INFILTRATE (20:24)
[2025-03-07 20:25] VITALS: BP 128/84; PULSE 82; RESP 17; O2SAT 99
[2025-03-07] MEDS: BACITRACIN OINTMENT 15 GM TUBE 1 APPLIC TOPICAL (21:18)
[2025-03-07 21:32] VITALS: BP 128/84; PULSE 78; RESP 16; O2SAT 100
== END 2025-03-07 21:34 | disposition home or self-care (01) ==
PROVIDERS: Emergency Provider Student in an Organized Health Care Education/Training Program; PCP Family Medicine
DX: S41.051A Open bite of right shoulder, initial encounter (principal); Z23 Encounter for immunization; W54.0XXA Bitten by dog, initial encounter
CPT/HCPCS: 12002; 73030; 90471; 90715; 99283; A9270; J2003

== ENCOUNTER 2025-03-11 16:57 | Emergency (ER) | payer BC, SELFPAY ==
[2025-03-11 17:03] VITALS: BP 138/88; PULSE 80; RESP 16; TEMP 36.3; O2SAT 98
--- NOTE | 2025-03-11 17:11 | ED_ITS ---
HPI - Wound/Laceration General Chief Complaint: Wound/Laceration Stated Complaint: Stitches Source: patient Mode of arrival: ambulatory Limitations: no limitations History of Present Illness HPI narrative: Patient is a 34-year-old male who presents to the clinic with complaints of stitches coming out prematurely to right shoulder. 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 4 stitches were originally placed at [facility] 4 days ago. Denies any concern for infection at the site he has sutures. Related Data Allergies Allergy/AdvReac Type Severity Reaction Status Date / Time No Known Allergies Allergy Verified 03/11/25 17:03 Review of Systems Review of Systems: CONSTITUTIONAL: Denies body aches, fever, chills, or sweats. EYES: Denies visual changes, redness, or discharge. ENT: Denies rhinorrhea, congestion CARDIOVASCULAR: Denies chest pain, palpitations, or edema. RESPIRATORY: Denies cough or dyspnea. GASTROINTESTINAL: Denies abdominal pain, nausea, vomiting, or diarrhea. SKIN: ?Reports stitches coming out prematurely on right shoulder. MUSCULOSKELETAL: Denies back pain, joint pain, or myalgia. NEUROLOGIC: Denies headache, numbness, tingling, or weakness. All systems reviewed & are unremarkable except as noted in HPI and below PMFSH Social History Social History Social History: Living arrangements: with family Additional living arrangements comments: and 2 dogs Occupation/Education: occupation Additional occupation/education comments: chiropractor Comments At time of signature, I have reviewed and agree with nursing past medical, surgical, social and family history unless otherwise noted. Please see nursing chart for further information. There is no relevant family history pertinent to the presenting complaint. Exam Narrative: GENERAL: Well-appearing HEAD: Normocephalic, atraumatic. EYES: ?conjunctivae clear, and EOMI. ENT: Mucous membranes moist. Oropharynx without edema, erythema or lesions. NECK: Supple. No lymphadenopathy CHEST: Clear to auscultation. HEART: Regular rate and rhythm. SKIN: Warm, dry. 5 cm linear dehisced laceration noted to right shoulder with 2 stitches. Mild erythema noted around the laceration. NEURO: ?Alert and oriented x3.? Course Course Level of Care: Express Care Visit Vital Signs Vital signs: Vital Signs Temperature 97.4 F L 03/11/25 17:03 Pulse Rate 80 03/11/25 17:03 Respiratory Rate 16 03/11/25 17:03 Blood Pressure 138/88 03/11/25 17:03 Pulse Oximetry 98 03/11/25 17:03 Temperature 97.4 F L 03/11/25 17:03 Pulse Rate 80 03/11/25 17:03 Respiratory Rate 16 03/11/25 17:03 Blood Pressure 138/88 03/11/25 17:03 Pulse Oximetry 98 03/11/25 17:03 Reviewed MDM - Wound/Laceration MDM Narrative Medical decision making narrative: Discussed physical exam findings. . Pt verbalized consent for picture. Picture sent to Dr. Diop (collaborator) for collaboration. She advised cleaning wound and doing wet to dry dressings/ allowing to heal without any further stitches. Advised supportive measures and signs/symptoms to go to the ER. Pt is appropriate for outpatient treatment and follow up Differential Diagnosis Differential diagnosis: Likely laceration, abscess and other (skin infection) Critical Care Time Critical Care Time Critical Care Time: No Discharge Plan Discharge Clinical Impression: Encounter for re-check of laceration wound Patient Disposition: Home Condition: Stable Instructions: Care For Your Stitches (DC) Additional Instructions: Continue taking your antibiotics. Wear the dressing that has been applied for the first 24 hours to allow a scab to start forming. After this, you may remove and wash as normal with soap and water. Do NOT wash with peroxide or alcohol. Do NOT apply antibiotic ointment. Use Vaseline to cover wound and may apply a nonstick adhesive dressing. Do not submerge your sutures in standing water such as pools, hot tubs, or sinks until they are removed. Take Tylenol or ibuprofen at home for pain, if able. Follow up with your PCP in 1-2 days for wound check. Go to ER with any signs of infection such as redness, swelling, increased pain, or drainage. May need to follow up with Plastics for a wound debridement. Patient Language: Bermudian Prescriptions: No Action acetaminophen 500 mg capsule 1,000 mg PO Q6H PRN (Reason: pain) Qty: 30 0RF ibuprofen 600 mg tablet 600 mg PO TID PRN (Reason: pain) Qty: 30 0RF amoxicillin-pot clavulanate 875-125 mg tablet 1 tablet PO Q12H 7 Days Qty: 13 0RF Rx Instructions: received first dose in ED 03/07 PM Follow-up/Referrals: PHYSICIAN,PRACTICE NURSE [Primary Care Provider] - Stand Alone Forms: Work/School Release IP Time of Disposition: 17:13
== END 2025-03-11 17:31 | disposition home or self-care (01) ==
DX: Z48.02 Encounter for removal of sutures (principal)
CPT/HCPCS: 99211; G0463